=== PATIENT | female | born 1980 | race Caucasian/White ===

== ENCOUNTER 2025-01-06 11:04 | Observation (INO) | payer OTHER ==
[2025-01-06 12:33] LABS: MCHC 32.7 g/dl (32.2-35.5); MEAN CELL VOLUME 91.4 fl (79.4-94.8); MEAN PLT VOLUME 10.0 fl (9.4-12.3); RDW 13.6 % (12.2-17.1)
[2025-01-06] MEDS ORDERED: ASPIRIN 81 MG CHEWABLE TABLETS ONE (12:41)
[2025-01-06] MEDS: ASPIRIN 81 MG CHEWABLE TABLETS PO ONE (12:43)
[2025-01-06 12:49] LABS: INR 0.89 (0.83-1.09); PROTHROMBIN TIME (PATIENT) 9.9 SEC (9.7-13.0)
[2025-01-06 12:51] LABS: ACTIVATED PTT 28.7 SECONDS (25.2-36.5)
[2025-01-06 12:56] LABS: ALK PHOS 79.0 U/L (45-117); CO2 24.0 mmol/L (21-32); CREATININE 0.9 mg/dl (0.6-1.3); GLUCOSE,RANDOM 92.0 mg/dl (74-106); LDL CHOLESTEROL (ONLY DFH) 109.0 mg/dL (5-100); SGOT/AST 63.0 U/L (15-37); SGPT/ALT 79.0 U/L (7-52); TOT PROT 6.3 g/dl (6.4-8.2)
[2025-01-06] MEDS: SODIUM CHLORIDE 500 ML IV STA (13:16)
[2025-01-06 15:49] LABS: HCV DIAGNOSTIC IN-HOUSE W/RFLX NON-REACTIVE (NONREACTIVE)
[2025-01-06 15:50] LABS: HIV INTERPRETATION NEGATIVE (NEGATIVE)
[2025-01-06] MEDS ORDERED: ACETAMINOPHEN INJECTION 100 ML ONE (17:40)
[2025-01-06] MEDS: ACETAMINOPHEN 1000 MG/100 ML BAG IVPB ONE (17:54)
[2025-01-06 18:10] LABS: COCAINE, UR NEGATIVE (NEGATIVE); PHENCYCLIDINE,URINE NEGATIVE (NEGATIVE)
[2025-01-06 18:11] LABS: METHADONE, UR NEGATIVE (NEGATIVE); OPIATES, URI NEGATIVE (NEGATIVE); URINE AMPHETAMINES NEGATIVE (NEGATIVE); URINE BARBITURATES NEGATIVE (NEGATIVE); URINE BENZODIAZEPINES NEGATIVE (NEGATIVE)
[2025-01-07] MEDS ORDERED: ACETAMINOPHEN 1000 MG/100 ML BAG IVPB PRN (00:51)
[2025-01-07 02:15] VITALS: BMI 29.2
[2025-01-07] MEDS: levETIRAcetam 500 MG/5 ML INJECTION VIAL IVPB ONE (03:01)
[2025-01-07] MEDS: SODIUM CHLORIDE 1,000 ML IV SCH (03:02)
[2025-01-07 06:14] VITALS: TEMP 98.4
[2025-01-07 07:16] LABS: ABSOLUTE IMMATURE GRANULOCYTES 0.02 x10^3/uL (0.0-0.031); BASOPHILS # 0.04 x10^3/uL (0.01-0.08); EOSINOPHIL % 2.0 % (0.7-5.8); EOSINOPHILS # 0.14 x10^3/uL (0.04-0.36); MCHC 32.2 g/dl (32.2-35.5); MEAN CELL VOLUME 92.0 fl (79.4-94.8); MEAN PLT VOLUME 9.9 fl (9.4-12.3); MONOCYTE # 0.61 x10^3/uL (0.24-0.86); MONOCYTE % 8.9 % (4.7-12.5); RDW 13.5 % (12.2-17.1)
[2025-01-07 07:43] LABS: GLUCOSE,RANDOM 83.0 mg/dL (74-106); TOT PROT 5.2 g/dl (6.4-8.2)
[2025-01-07 07:45] LABS: ALK PHOS 78.0 U/L (40-150)
[2025-01-07 07:47] LABS: CO2 19.0 mmol/L (21-32)
[2025-01-07 07:48] LABS: SGOT/AST 70.0 U/L (5-34); SGPT/ALT 95.0 U/L (0-55)
[2025-01-07 07:49] LABS: CREATININE 0.78 mg/dL (0.55-1.3)
[2025-01-07] MEDS ORDERED: levETIRAcetam 500 MG TABLET (FP) PO SCH (10:00)
[2025-01-07] MEDS: ENOXAPARIN NA (PORCINE) 40 MG/0.4 ML DISP.SYRIN SQ SCH (11:17)
[2025-01-07] MEDS: LOSARTAN POTASSIUM 50 MG TABLET PO SCH (11:17)
[2025-01-07 12:05] VITALS: BP 110/72; PULSE 72; RESP 17
[2025-01-07] MEDS ORDERED: ATORVASTATIN CA 40 MG TABLET (FP) PO SCH (22:00)
== END 2025-01-07 15:00 | disposition home or self-care (01) ==
LOC: FER 11:04 → INTOOBSV 22:50 → J4W 22:50
PROVIDERS: ADMIT Student in an Organized Health Care Education/Training Program; ATTEND Internal Medicine
PROC: 3E033NZ Introduction of Analgesics, Hypnotics, Sedatives into Peripheral Vein, Percutaneous Approach (ICD-10-PCS; principal; 2025-01-06)
PROC: 3E023GC Introduction of Other Therapeutic Substance into Muscle, Percutaneous Approach (ICD-10-PCS; 2025-01-06)
PROC: 3E033GC Introduction of Other Therapeutic Substance into Peripheral Vein, Percutaneous Approach (ICD-10-PCS; 2025-01-06)
PROC: 3E0337Z Introduction of Electrolytic and Water Balance Substance into Peripheral Vein, Percutaneous Approach (ICD-10-PCS; 2025-01-06)
DX: R42 Dizziness and giddiness (principal); R55 Syncope and collapse; I10 Essential (primary) hypertension; W18.39XA Other fall on same level, initial encounter; Y93.E1 Activity, personal bathing and showering; Y92.89 Other specified places as the place of occurrence of the external cause; M54.2 Cervicalgia
CPT/HCPCS: 36415; 70450-TC; 71046-TC-FY; 72125-TC; 80053; 80061; 80307; 81025; 82962; 83605; 83735; 84100; 84443; 84484; 84703; 85025; 85027; 85610; 85730; 86803; 87389; 93005; 93306-TC; 95816; 99285-25; G0378